=== PATIENT | male | born 1965 | race American Indian/Alaskan Native ===

== ENCOUNTER 2016-09-12 07:53 | Emergency (ER) | payer OTHER ==
[2016-09-12 08:33] LABS: Basophils % (Auto) 1.1 % (0.0-1.8); Eosinophils % (Auto) 1.1 % (0.0-4.3); Hematocrit 49.3 % (35.5-45.6); Hemoglobin 16.4 gm/dl (11.8-15.2); Mean Corpuscular HGB Conc 33 % (32-34); Mean Corpuscular Hemoglobin 32 pg (28-32); Mean Corpuscular Volume 96 fl (84-94); Platelet Count 253 K/mm3 (140-440); Red Blood Count 5.15 M/mm3 (3.65-5.03); Red Cell Distribution Width 14.4 % (13.2-15.2); White Blood Count 5.6 K/mm3 (4.5-11.0)
[2016-09-12 09:01] LABS: Anion Gap 23 mmol/L; Blood Urea Nitrogen 13 mg/dL (9-20); Calcium 8.9 mg/dL (8.4-10.2); Carbon Dioxide 20 mmol/L (22-30); Chloride 101.3 mmol/L (98-107); Glucose 105 mg/dL (75-100); Potassium 4.3 mmol/L (3.6-5.0); Sodium 140 mmol/L (137-145)
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
--- NOTE | 2016-09-12 10:46 | XRay Report ---
CHEST 2 VIEWS INDICATION: Chest pain. COMPARISON: None similar. FINDINGS: PA and lateral chest radiographs demonstrate aortic arch stent graft. Mild uncoiling of the descending aorta. Normal cardiomediastinal silhouette. Left lateral osteopenic angle blunting/possible pleural thickening. No significant pleural effusions or CHF. Thoracic spondylosis. Multiple old healed left rib deformities. Few surgical clips near the GE junction. CONCLUSION: No acute chest process with few iatrogenic changes noted, as above. Thank you for the opportunity to participate in this patient's care.
[2016-09-12] MEDS ORDERED: NORCO 5/325 PO ONE (12:37)
[2016-09-12 12:58] VITALS: BP 148/90
== END 2016-09-12 13:18 | disposition home or self-care (01) ==
LOC: ED 07:53
DX: S30.861A Insect bite (nonvenomous) of abdominal wall, initial encounter (principal); M25.50 Pain in unspecified joint; R11.2 Nausea with vomiting, unspecified; R42 Dizziness and giddiness; I10 Essential (primary) hypertension; I25.10 Atherosclerotic heart disease of native coronary artery without angina pectoris; F12.10 Cannabis abuse, uncomplicated; M19.90 Unspecified osteoarthritis, unspecified site; W57.XXXA Bitten or stung by nonvenomous insect and other nonvenomous arthropods, initial encounter; Y93.9 Activity, unspecified; Y99.9 Unspecified external cause status; Y92.89 Other specified places as the place of occurrence of the external cause
CPT/HCPCS: 36415; 71020; 80048; 84484; 85025; 93005; 93010; 99285

== ENCOUNTER 2020-04-04 08:01 | Emergency (ER) | payer MEDICAID, OTHER ==
[2020-04-04 08:08] VITALS: BP 188/107
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
== END 2020-04-04 10:54 | disposition home or self-care (01) ==
LOC: ED 08:01
DX: L02.416 Cutaneous abscess of left lower limb (principal); I10 Essential (primary) hypertension; M19.91 Primary osteoarthritis, unspecified site; Z98.890 Other specified postprocedural states; Z79.2 Long term (current) use of antibiotics; Z79.899 Other long term (current) drug therapy
CPT/HCPCS: 99282